=== PATIENT | female | born 1985 ===

== ENCOUNTER 2017-12-06 07:28 | Outpatient (CLI) | payer OTHER | END 2017-12-06 08:00 | disposition home or self-care (01) | LOC: NUCLEAR 07:28 | DX: R10.13 Epigastric pain (principal); K31.84 Gastroparesis | CPT/HCPCS: 78264; A9541 ==

== ENCOUNTER 2021-09-03 14:49 | Outpatient (CLI) | payer OTHER | END 2021-09-03 17:24 | disposition home or self-care (01) | LOC: PRENATAL 14:49 | PROVIDERS: ATTEND Obstetrics & Gynecology Maternal & Fetal Medicine | DX: O35.0XX0 Maternal care for (suspected) central nervous system malformation in fetus, not applicable or unspecified (principal); O35.3XX0 Maternal care for (suspected) damage to fetus from viral disease in mother, not applicable or unspecified; O09.519 Supervision of elderly primigravida, unspecified trimester; O24.319 Unspecified pre-existing diabetes mellitus in pregnancy, unspecified trimester; O36.5990 Maternal care for other known or suspected poor fetal growth, unspecified trimester, not applicable or unspecified ==